=== PATIENT | female | born 2000 ===

== ENCOUNTER 2022-07-10 12:22 | Outpatient (CLI) | payer OTHER ==
[~2022-07-10 12:22] MED LIST: Iopamidol 370 76% 100 ML VIAL ONE
== END 2022-07-10 12:23 | disposition home or self-care (01) ==
LOC: CT 12:22
PROVIDERS: ATTEND Specialist
DX: R59.9 Enlarged lymph nodes, unspecified (principal)
CPT/HCPCS: 70492